=== PATIENT | female | born 1950 | race Hispanic/Latino ===

== ENCOUNTER 2016-11-04 23:06 | Emergency (ER) | payer MEDICARE ==
[2016-11-04 23:30] VITALS: BP 154/76
[2016-11-05 00:01] LABS: Eosinophils % (Auto) 1.3 % (0.0-4.3); Hematocrit 39.2 % (30.3-42.9); Hemoglobin 13.2 gm/dl (10.1-14.3); Mean Corpuscular HGB Conc 34 % (30-34); Mean Corpuscular Hemoglobin 31 pg (28-32); Mean Corpuscular Volume 92 fl (79-97); Platelet Count 242 K/mm3 (140-440); Red Blood Count 4.26 M/mm3 (3.65-5.03); Red Cell Distribution Width 13.8 % (13.2-15.2); White Blood Count 11.5 K/mm3 (4.5-11.0)
[2016-11-05 00:18] LABS: Anion Gap 19 mmol/L; BUN/Creatinine Ratio 23.33; Blood Urea Nitrogen 14 mg/dL (7-17); Carbon Dioxide 20 mmol/L (22-30); Glucose 203 mg/dL (65-100); Potassium 3.9 mmol/L (3.6-5.0); Sodium 138 mmol/L (137-145)
--- NOTE | 2016-11-07 21:53 | ED Elopement Review ---
ED Pt Elopement review - Results review Lab results: Laboratory Tests 11/04/16 11/04/16 23:35 23:35 WBC 11.5 H RBC 4.26 Hgb 13.2 Hct 39.2 MCV 92 MCH 31 MCHC 34 RDW 13.8 Plt Count 242 Lymph % (Auto) 30.1 [place] % (Auto) 5.7 Eos % (Auto) 1.3 Baso % (Auto) 1.0 Lymph # 3.4 [place] # 0.7 Eos # 0.2 Baso # 0.1 Seg Neutrophils % 61.9 Seg Neutrophils # 7.1 Sodium 138 Potassium 3.9 Chloride 103.0 Carbon Dioxide 20 L Anion Gap 19 BUN 14 Creatinine 0.6 L Estimated GFR > 60 BUN/Creatinine Ratio 23.33 Glucose 203 H Calcium 9.0 - Call Back decision Pt Call Back Decision: No action required
== END 2016-11-05 00:59 | disposition left against medical advice (07) ==
LOC: ED 23:06
DX: S09.90XA Unspecified injury of head, initial encounter (principal); Z53.21 Procedure and treatment not carried out due to patient leaving prior to being seen by health care provider
CPT/HCPCS: 36415; 80048; 85025; 93005; 93010